=== PATIENT | male | born 1955 | race Native Hawaiian/Other Pacific Islander ===

== ENCOUNTER 2018-03-11 20:06 | Emergency (ER) | payer OTHER, SELFPAY ==
[2018-03-11] MEDS ORDERED: AMOXICILLIN 500 MG CAP As Ordered ×2 (20:52)
[2018-03-11] MEDS: AMOXICILLIN 500 MG CAP PO ×2 (20:55)
== END 2018-03-11 20:55 | disposition home or self-care (01) ==
LOC: M ED 20:06
DX: J02.0 Streptococcal pharyngitis (principal); Z79.899 Other long term (current) drug therapy
CPT/HCPCS: 87880